=== PATIENT | female | born 1950 | race Caucasian/White ===

== ENCOUNTER → 2019-02-10 | Outpatient (CLI) | payer MEDICARE, BC | LOC: COL.RAD 02-08 10:00 | DX: R11.2 Nausea with vomiting, unspecified (principal); R10.9 Unspecified abdominal pain | CPT/HCPCS: Q9967 ==

== ENCOUNTER → 2019-02-16 | Outpatient (CLI) | payer MEDICARE, BC | LOC: COL.RAD 12:11 | DX: N83.8 Other noninflammatory disorders of ovary, fallopian tube and broad ligament (principal); R93.89 Abnormal findings on diagnostic imaging of other specified body structures ==

== ENCOUNTER → 2022-08-08 | Outpatient (CLI) | payer MEDICARE, BC | LOC: COL.RAD 07:12 | DX: R41.82 Altered mental status, unspecified (principal); J32.2 Chronic ethmoidal sinusitis; J32.1 Chronic frontal sinusitis | CPT/HCPCS: A9575 ==

== ENCOUNTER 2022-09-26 11:36 | Emergency (ER) | payer MEDICARE, BC ==
[~2022-09-26] VITALS: Ht 152.4 cm; Wt 68.2 kg
[2022-09-26 12:01] VITALS: TEMP 97.7
[2022-09-26 13:04] LABS: BASO # 0.1 K/mm3 (0.0-0.2); BASO % 0.9 % (0.0-2.0); EOS # 0.1 K/mm3 (0.0-0.7); EOS % 0.7 % (0.0-4.0); GRAN # 4.5 K/mm3 (1.4-6.5); GRAN % 66.5 % (42.2-75.2); HEMATOCRIT 38.3 % (37.0-47.0); HEMOGLOBIN 12.8 g/dl (12.5-16.0); LYMPH # 1.8 K/mm3 (1.2-3.4); LYMPH % 26.2 % (20.0-51.0); MEAN CELL VOLUME 87 fl (80.0-100.0); MEAN CORPUSCULAR HEMOGLOBIN 29 pg (27-31); MEAN CORPUSCULAR HGB CONC 33 g/dl (33.0-37.0); MEAN PLATELET VOLUME 9.5 fl (7.4-10.4); MONO # 0.4 K/mm3 (0.1-0.6); MONO % 5.6 % (1.7-9.3); PLATELET COUNT 306 K/mm3 (130-400); RED BLOOD COUNT 4.43 M/mm3 (4.10-5.30)
[2022-09-26 13:23] LABS: ALBUMIN 3.6 gm/dL (3.4-4.8); BILIRUBIN,TOTAL 0.4 mg/dL (0.2-1.2); CALCIUM 9.5 mg/dL (8.4-10.2); CREATININE, serum 0.75 mg/dL (0.57-1.11); POTASSIUM 3.6 mmol/L (3.5-4.5)
[2022-09-26 14:38] VITALS: BP 161/59; PULSE 82
== END 2022-09-26 14:40 | disposition home or self-care (01) ==
LOC: COL.ER 11:36
PROVIDERS: Nurse Practitioner Family
DX: G43.909 Migraine, unspecified, not intractable, without status migrainosus (principal)
CPT/HCPCS: J0780; J1200; J7120

== ENCOUNTER → 2024-01-08 | Outpatient (CLI) | payer MEDICARE, BC | LOC: DIA.ED 12:44 | DX: E11.9 Type 2 diabetes mellitus without complications (principal); E78.5 Hyperlipidemia, unspecified; I10 Essential (primary) hypertension | CPT/HCPCS: G0108 ==

== ENCOUNTER 2024-08-27 13:55 | Outpatient (CLI) | payer MEDICARE, BC ==
[~2024-08-27] VITALS: Ht 152.4 cm; Wt 65.0 kg
[2024-08-27 14:58] VITALS: BP 134/86; PULSE 73; TEMP 98
[2024-08-27] MEDS ORDERED: COZAAR100 MG PO (15:33)
[2024-08-27] MEDS ORDERED: MOBIC15 MG PO (15:33)
[2024-08-27] MEDS ORDERED: ASPIRIN E.C. 8181 MG PO (15:33)
[2024-08-27] MEDS ORDERED: PRILOSEC 20MG20 MG PO (15:33)
[2024-08-27] MEDS ORDERED: ARICEPT10 MG PO (15:34)
[2024-08-27] MEDS ORDERED: TRIAMCINOLONE A15 G1 TP (15:34)
[2024-08-27] MEDS ORDERED: NAMENDA 10MG TA10 MG PO (15:34)
[2024-08-27] MEDS ORDERED: OZEMPIC1 MG/0.71 SQ (15:35)
[2024-08-27] MEDS ORDERED: FARXIGA10 PO (15:35)
== END 2024-08-27 15:20 | disposition home or self-care (01) ==
LOC: EUO 13:55
DX: M81.0 Age-related osteoporosis without current pathological fracture (principal)
CPT/HCPCS: J3489